=== PATIENT | male | born 1950 | race Caucasian/White ===

== ENCOUNTER 2021-03-27 10:30 | Outpatient (CLI) | payer OTHER ==
[~2021-03-27 10:30] MED LIST: DICLOFENAC POTA50 MG PO; LOTREL 10-20 M1 EACH; LOTREL 5-20 MG1 CAP PO; NABUMETONE500 MG PO; PERCOCET 5/3251 TAB PO; ROBAXIN-750750 MG PO; TIZANIDINE HCL2 MG PO; TRAM1TAB98 PO; ZANAFLEX4 M1 PO
== END 2021-03-27 11:35 | disposition home or self-care (01) ==
LOC: ASH CLINIC 10:30
PROVIDERS: ATTEND Emergency Medicine
DX: Z23 Encounter for immunization (principal); U07.1 COVID-19

== ENCOUNTER 2023-06-24 12:39 | Outpatient (CLI) | payer OTHER ==
[~2023-06-24 12:39] MED LIST changes: +PERCOCET 5-3251 EACH PO
== END 2023-06-24 13:55 | disposition home or self-care (01) ==
LOC: RAD 12:39
PROVIDERS: ATTEND Physical Medicine & Rehabilitation
DX: M54.59 Other low back pain (principal)

== ENCOUNTER 2024-04-10 13:38 | Outpatient (CLI) | payer OTHER | END 2024-04-10 13:47 | disposition home or self-care (01) | LOC: MRI 13:38 | PROVIDERS: ATTEND Physical Medicine & Rehabilitation | DX: M54.50 Low back pain, unspecified (principal) | CPT/HCPCS: 72148 ==

== ENCOUNTER 2025-07-29 12:16 | Outpatient (CLI) | payer OTHER ==
[~2025-07-29 12:16] MED LIST changes: +DULCOLAX5 MG PO; +DULOXETINE HCL30 MG PO; +GABAPENTIN300 M2 PO; +PREGABALIN75 MG PO
== END 2025-07-29 12:19 | disposition home or self-care (01) ==
LOC: MRI 12:16
PROVIDERS: ATTEND Physical Medicine & Rehabilitation
DX: M75.100 Unspecified rotator cuff tear or rupture of unspecified shoulder, not specified as traumatic (principal); M25.511 Pain in right shoulder; S42.301A Unspecified fracture of shaft of humerus, right arm, initial encounter for closed fracture; X58.XXXA Exposure to other specified factors, initial encounter; Y93.9 Activity, unspecified; Y92.9 Unspecified place or not applicable; Y99.9 Unspecified external cause status
CPT/HCPCS: 73218